=== PATIENT | female | born 1955 | race Caucasian/White ===

== ENCOUNTER 2022-05-16 13:05 | Emergency (ER) | payer MEDICARE ==
[~2022-05-16] VITALS: Ht 160 cm; Wt 76.7 kg
[2022-05-16] MEDS ORDERED: METHOCARBAMOL 500 MG TAB PO ONE (13:30)
[2022-05-16] MEDS ORDERED: PREDNISONE 20 MG TAB PO ONE (13:30)
[2022-05-16] MEDS ORDERED: HYDROCODONE/APAP 5MG-325MG TAB PO ONE (13:30)
[2022-05-16] MEDS ORDERED: NAPROXEN 250 MG TAB ONE (13:49)
[2022-05-16] MEDS ORDERED: HYDROCODONE/APAP 5MG-325MG TAB ONE (13:53)
[2022-05-16] MEDS ORDERED: CEPHALEXIN 500 MG CAP PO ONE (14:00)
[2022-05-16] MEDS ORDERED: CLINDAMYCIN HCL 150 MG CAP PO ONE (14:00)
[2022-05-16] MEDS ORDERED: PREDNISONE50 MG PO (16:16)
[2022-05-16] MEDS ORDERED: METHOCARBAMOL500 MG PO (16:16)
[2022-05-16] MEDS ORDERED: NAPROSYN500 MG PO (16:16)
[2022-05-16] MEDS ORDERED: NAPROXEN 250 MG TAB PO SCH (17:00)
== END 2022-05-16 16:19 | disposition home or self-care (01) ==
LOC: ER 13:25
DX: M54.42 Lumbago with sciatica, left side (principal); R50.9 Fever, unspecified; Z85.3 Personal history of malignant neoplasm of breast
CPT/HCPCS: 72100; 99283; J7512

== ENCOUNTER 2022-05-30 15:05 | Emergency (ER) | payer MEDICARE ==
[~2022-05-30] VITALS: Ht 160 cm; Wt 76.2 kg
[~2022-05-30 15:05] MED LIST: METHOCARBAMOL500 MG PO; NAPROSYN500 MG PO; PREDNISONE50 MG PO
[2022-05-30] MEDS ORDERED: ONDANSETRON HCL INJ 2MG/ML 2ML 2 MG/ML VIAL IV STA (16:38)
[2022-05-30] MEDS ORDERED: Morphine 4mg INJECTION 4 MG/ML INJ IV ONE (16:45)
[2022-05-30] MEDS ORDERED: SODIUM CHLORIDE 0.9% 1000ML 1,000 ML IV ONE (16:45)
[2022-05-30 16:57] LABS: BASOPHILS # (AUTO) 0.1 (0.0-0.1); BASOPHILS % 0.5 % (0.0-1.0); EOSINOPHILS # (AUTO) 0.1 (0.0-0.4); EOSINOPHILS % 0.9 % (0.0-6.0); HEMATOCRIT 44.4 % (34.2-44.1); HEMOGLOBIN 14.4 g/dL (12.0-16.0); LYMPHOCYTES # (AUTO) 2.1 (1.0-3.2); LYMPHOCYTES % 20.2 % (18.0-39.1); MEAN CORPUSCULAR HEMOGLOBIN 30.1 pg (28-32); MEAN CORPUSCULAR HGB CONC 32.4 g/dL (31-35); MEAN CORPUSCULAR VOLUME 92.9 fL (81-99); MONOCYTES # (AUTO) 0.9 (0.2-0.8); MONOCYTES % 8.2 % (4.4-11.3); NEUTROPHILS # (AUTO) 7.2 (2.1-6.9); NEUTROPHILS % 69.7 % (38.7-80.0); PLATELET COUNT 275 x10e3/uL (140-360); RED BLOOD COUNT 4.78 x10e6/uL (3.6-5.1)
[2022-05-30 17:14] LABS: ALBUMIN/GLOBULIN RATIO 1.3 (0.8-2.0); ANION GAP 15.4 mmol/L (8-16); CALCIUM 9.3 mg/dL (8.4-10.2); CREATININE, SERUM 0.81 mg/dL (0.57-1.11); POTASSIUM 4.4 mmol/L (3.5-5.1)
[2022-05-30] MEDS ORDERED: GADOBENATE DIMEGLUMINE 1 ML IV ONE (17:58)
[2022-05-30 19:42] LABS: CLARITY,URINE HAZY (CLEAR); COLOR,URINE YELLOW (YELLOW)
[2022-05-30 19:43] LABS: KETONES,URINE NEGATIVE (NEGATIVE); LEUKOCYTE ESTERASE ,URINE TRACE (NEGATIVE); NITRITE,URINE POSITIVE (NEGATIVE); PROTEIN,URINE DIPSTICK NEGATIVE (NEGATIVE); URINE UROBILINOGEN 0.2 mg/dL (0.2 - 1)
[2022-05-30 20:01] LABS: BACTERIA,URINE MANY /HPF
== END 2022-05-30 23:01 | disposition other institution (70) ==
LOC: ER 15:36
DX: G83.4 Cauda equina syndrome (principal); Z20.822 Contact with and (suspected) exposure to COVID-19; Z85.3 Personal history of malignant neoplasm of breast
CPT/HCPCS: 0223U; 36415; 72158; 80053; 81001; 85025; 93005; 99284; A9577; J2270; J2405; J7030